=== PATIENT | male | born 1955 | race Two or more races ===

== ENCOUNTER 2020-07-06 10:50 | Outpatient (CLI) | payer OTHER ==
[2020-07-20] MEDS ORDERED: MICARDIS80 MG PO (14:46)
[2020-07-20] MEDS ORDERED: CADUET 5 MG-101 EACH PO (14:46)
[2020-07-20] MEDS ORDERED: TOPROL XL25 M1 PO (14:46)
[2020-07-20] MEDS ORDERED: PRILOSEC OTC20 MG PO (14:47)
[2020-07-20] MEDS ORDERED: CARDURA1 MG PO (14:47)
== END 2020-07-06 10:51 | disposition home or self-care (01) ==
LOC: RAD 10:50
DX: N20.0 Calculus of kidney (principal)

== ENCOUNTER → 2020-07-06 | Outpatient (CLI) | payer OTHER ==
[~2020-07-06] MED LIST: CADUET 5 MG-101 EACH PO; CARDURA1 MG PO; MICARDIS80 MG PO; PRILOSEC OTC20 MG PO; TOPROL XL25 M1 PO
== END | disposition home or self-care (01) ==
LOC: TOM 14:15
PROVIDERS: ATTEND Urology
DX: N20.0 Calculus of kidney (principal)

== ENCOUNTER 2020-07-15 13:36 | Outpatient (CLI) | payer OTHER ==
[2020-07-20] MEDS ORDERED: MICARDIS80 MG PO (14:46)
[2020-07-20] MEDS ORDERED: CADUET 5 MG-101 EACH PO (14:46)
[2020-07-20] MEDS ORDERED: TOPROL XL25 M1 PO (14:46)
[2020-07-20] MEDS ORDERED: CARDURA1 MG PO (14:47)
[2020-07-20] MEDS ORDERED: PRILOSEC OTC20 MG PO (14:47)
== END 2020-07-15 13:43 | disposition home or self-care (01) ==
LOC: RAD 13:36
PROVIDERS: ATTEND Urology
DX: Q33.8 Other congenital malformations of lung (principal); R10.31 Right lower quadrant pain; M54.5 Low back pain

== ENCOUNTER 2020-07-19 15:18 | Outpatient (CLI) | payer OTHER ==
[2020-07-20] MEDS ORDERED: CADUET 5 MG-101 EACH PO (14:46)
[2020-07-20] MEDS ORDERED: TOPROL XL25 M1 PO (14:46)
[2020-07-20] MEDS ORDERED: MICARDIS80 MG PO (14:46)
[2020-07-20] MEDS ORDERED: CARDURA1 MG PO (14:47)
[2020-07-20] MEDS ORDERED: PRILOSEC OTC20 MG PO (14:47)
== END 2020-07-19 16:00 | disposition home or self-care (01) ==
LOC: TOM 15:18
PROVIDERS: ATTEND Colon & Rectal Surgery
DX: K76.0 Fatty (change of) liver, not elsewhere classified (principal); N20.0 Calculus of kidney; R10.31 Right lower quadrant pain; K57.90 Diverticulosis of intestine, part unspecified, without perforation or abscess without bleeding

== ENCOUNTER 2020-07-21 05:55 | Day surgery (SDC) | payer OTHER | END 2020-07-21 14:55 | disposition home or self-care (01) | LOC: CIR.AMB 05:55 | PROVIDERS: ATTEND Urology | DX: C67.2 Malignant neoplasm of lateral wall of bladder (principal); C67.3 Malignant neoplasm of anterior wall of bladder; C67.4 Malignant neoplasm of posterior wall of bladder; Z20.828 Contact with and (suspected) exposure to other viral communicable diseases ==

== ENCOUNTER 2020-07-22 00:21 | Emergency (ER) | payer OTHER ==
[~2020-07-22] VITALS: Ht 182.9 cm; Wt 88.5 kg
== END 2020-07-22 02:17 | disposition home or self-care (01) ==
LOC: ER 00:21
DX: R33.8 Other retention of urine (principal)

== ENCOUNTER 2020-09-20 17:24 | Outpatient (CLI) | payer OTHER | END 2020-09-20 17:30 | disposition home or self-care (01) | LOC: LAB 17:24 | PROVIDERS: ATTEND Ophthalmology | DX: N39.0 Urinary tract infection, site not specified (principal) ==

== ENCOUNTER 2021-08-02 05:50 | Day surgery (SDC) | payer OTHER | END 2021-08-02 10:00 | disposition home or self-care (01) | LOC: CIR.AMB 05:50 | PROVIDERS: ATTEND Urology | DX: N20.0 Calculus of kidney (principal); Z20.822 Contact with and (suspected) exposure to COVID-19 ==

== ENCOUNTER 2021-08-04 07:12 | Outpatient (CLI) | payer OTHER | END 2021-08-04 07:23 | disposition home or self-care (01) | LOC: RAD 07:12 | DX: N20.0 Calculus of kidney (principal) ==

== ENCOUNTER 2021-08-22 12:20 | Outpatient (CLI) | payer OTHER | END 2021-08-22 12:29 | disposition home or self-care (01) | LOC: RAD 12:20 | PROVIDERS: ATTEND Urology | DX: N20.0 Calculus of kidney (principal) ==

== ENCOUNTER 2021-10-13 10:16 | Outpatient (CLI) | payer OTHER | END 2021-10-13 10:23 | disposition home or self-care (01) | LOC: RAD 10:16 | PROVIDERS: ATTEND Urology | DX: N20.0 Calculus of kidney (principal) ==

== ENCOUNTER 2022-03-01 05:50 | Day surgery (SDC) | payer OTHER ==
[~2022-03-01] VITALS: Ht 182.9 cm; Wt 88.5 kg
[~2022-03-01 05:50] MED LIST changes: +FOLIC ACID0.8 M1 PO; +PRESERVISION A1 EAC1 PO
== END 2022-03-01 09:25 | disposition home or self-care (01) ==
LOC: CIR.AMB 05:50 → O/R 05:50 → SURH 05:50 → EDSTATUS 09:15 → CIR.AMB 09:25 → O/R 09:25
PROVIDERS: ATTEND Urology
DX: N40.1 Benign prostatic hyperplasia with lower urinary tract symptoms (principal); R33.8 Other retention of urine; Z53.09 Procedure and treatment not carried out because of other contraindication; B95.2 Enterococcus as the cause of diseases classified elsewhere; Z85.51 Personal history of malignant neoplasm of bladder

== ENCOUNTER 2022-03-04 07:57 | Outpatient (CLI) | payer OTHER | END 2022-03-04 08:01 | disposition home or self-care (01) | LOC: LAB 07:57 | PROVIDERS: ATTEND Urology | DX: N30.00 Acute cystitis without hematuria (principal); Z20.822 Contact with and (suspected) exposure to COVID-19 ==

== ENCOUNTER 2022-03-08 06:00 | Inpatient (IN) | payer OTHER | END 2022-03-10 13:08 | disposition home or self-care (01) | DRG 714 | LOC: O/R 06:00 → SURG 06:00 → O/R 10:34 → SURG 11:24 → SURH 03-09 16:09 | PROVIDERS: ADMIT Urology; ATTEND Urology | PROC: 0VB08ZZ Excision of Prostate, Via Natural or Artificial Opening Endoscopic (ICD-10-PCS; principal; 2022-03-08 07:00) | DX: N40.0 Benign prostatic hyperplasia without lower urinary tract symptoms (principal); D30.3 Benign neoplasm of bladder; N41.1 Chronic prostatitis; C67.9 Malignant neoplasm of bladder, unspecified ==

== ENCOUNTER 2023-01-04 08:31 | Outpatient (CLI) | payer OTHER | END 2023-01-04 08:32 | disposition home or self-care (01) | LOC: LAB 08:31 | PROVIDERS: ATTEND Urology | DX: N30.00 Acute cystitis without hematuria (principal) ==

== ENCOUNTER 2024-08-19 09:31 | Outpatient (CLI) | payer OTHER | END 2024-08-19 09:44 | disposition home or self-care (01) | LOC: TOM 09:31 | PROVIDERS: ATTEND Urology | DX: C67.9 Malignant neoplasm of bladder, unspecified (principal); R31.1 Benign essential microscopic hematuria ==

== ENCOUNTER → 2024-08-19 | Outpatient (CLI) | payer OTHER | END | disposition home or self-care (01) | LOC: LAB 08:58 | PROVIDERS: ATTEND Urology | DX: R97.21 Rising PSA following treatment for malignant neoplasm of prostate (principal) ==